=== PATIENT | female | born 1960 ===

== ENCOUNTER 2018-08-14 13:05 | Emergency (ER) | payer SELFPAY ==
[2018-08-14 13:13] VITALS: RESP 20
--- NOTE | 2018-08-14 14:23 | C.PDOC ---
History Of Present Illness 58 y/o female pt presents to the ER for c/o non-productive cough and cold sx for x2 years that worsened over the past 3 days. Patient was seen by Dr. Stanley Glasgow 2 days ago who prescribed her Zithromax, prednisone and cough medicine which did not provide relief. Pt denies fever, chills, nausea, vomiting, sore throat and chest pain. Time Seen by Provider: 08/14/18 13:18 Chief Complaint (Nursing): Cough, Cold, Congestion History Per: Patient History/Exam Limitations: no limitations Onset/Duration Of Symptoms: Days (x2 years) Current Symptoms Are (Timing): Still Present Associated Symptoms: Cough. denies: Fever, Sputum Severity: Mild Pain Scale Rating Of: 2 Past Medical History Reviewed: Historical Data, Nursing Documentation, Vital Signs Vital Signs: Last Vital Signs Temp 98.4 F 08/14/18 13:12 Pulse 81 08/14/18 13:12 Resp 20 08/14/18 13:12 BP 156/81 H 08/14/18 13:12 Pulse Ox 99 08/14/18 13:12 - Medical History PMH: No Chronic Diseases Surgical History: No Surg Hx Family History: States: No Known Family Hx - Social History Hx Alcohol Use: No Hx Substance Use: No Review Of Systems Except As Marked, All Systems Reviewed And Found Negative. Constitutional: Negative for: Fever, Chills ENT: Positive for: Nose Congestion. Negative for: Throat Pain Cardiovascular: Negative for: Chest Pain Respiratory: Positive for: Cough. Negative for: Shortness of Breath Gastrointestinal: Negative for: Nausea, Vomiting Physical Exam - Physical Exam Appears: Non-toxic, No Acute Distress Skin: Normal Color, Warm, Dry Head: Atraumatic, Normacephalic Eye(s): bilateral: Normal Inspection, PERRL, EOMI Ear(s): Bilateral: Normal Nose: Normal Oral Mucosa: Moist Throat: Normal Neck: Normal ROM, Supple Chest: Symmetrical Cardiovascular: Rhythm Regular Respiratory: Normal Breath Sounds, No Rales, No Rhonchi Gastrointestinal/Abdominal: Soft, No Tenderness Back: No CVA Tenderness Extremity: Normal ROM (x4) Neurological/Psych: Oriented x3, Normal Speech Gait: Steady ED Course And Treatment O2 Sat by Pulse Oximetry: 99 (RA) Pulse Ox Interpretation: Normal - Other Rad Chest XR Interpretation: Accession No. : [id number]. Patient Name / ID : BONIFACIO VALDEZ R / [id number]. Exam Date : 08/14/2018 13:43:48 ( Approved ). Study Comment : Sex / Age : F / 58Y. Creator : Anthony Freedman MD. Dictator : Anthony Freedman MD. Crotch Piece Baster : Shell Reprint Operator : Anthony Freedman MD. Approver2 : Report Date : 08/14/2018 14:56:32. My Comment : . Date of service: 08/14/2018. HISTORY: SOB. COMPARISON: No prior. TECHNIQUE: Chest PA and lateral. FINDINGS: LUNGS: No active pulmonary disease. PLEURA: No significant pleural effusion identified. No pneumothorax apparent. CARDIOVASCULAR: No aortic atherosclerotic calcification present. Normal cardiac size. No pulmonary vascular congestion. OSSEOUS STRUCTURES: No significant abnormalities. VISUALIZED UPPER ABDOMEN: Normal. OTHER FINDINGS: None. IMPRESSION: No acute cardiopulmonary disease appreciated. Progress Note: On re-evaluation lungs clear, in no distress Reassessment Condition: Unchanged Medical Decision Making Medical Decision Making: Impression: cough and cold sx Plans: -- CXR Disposition Counseled Patient/Family Regarding: Studies Performed, Diagnosis, Need For Followup - Disposition Referrals: Chelsea Glasgow MD [Staff Provider] - Disposition: HOME/ ROUTINE Disposition Time: 15:00 Condition: STABLE Additional Instructions: Follow up with Dr Glasgow for further evaluation Prescriptions: Albuterol HFA [Ventolin HFA 90 mcg/actuation (8 g)] 2 puff IH [id number] PRN #1 vial PRN Reason: Cough Instructions: Upper Respiratory Infection (ED) Forms: [employer] (Yi) - POA Present On Arrival: None - Clinical Impression Clinical Impression: Cough - PA / NUCLEAR EQUIPMENT RESEARCH ENGINEER / Resident Statement MD/DO has reviewed & agrees with the documentation as recorded. - Scribe Statement The provider has reviewed the documentation as recorded by the Scribe Aguilar All medical record entries made by the Liz were at my direction and personally dictated by me. I have reviewed the chart and agree that the record accurately reflects my personal performance of the history, physical exam, medical decision making, and the department course for this patient. I have also personally directed, reviewed, and agree with the discharge instructions and disposition.
[2018-08-14 14:57] VITALS: BP 145/89; PULSE 64; TEMP 98.1
--- NOTE | 2018-08-14 14:59 | RAD ---
Date of service: 08/14/2018 HISTORY: SOB COMPARISON: No prior. TECHNIQUE: Chest PA and lateral FINDINGS: LUNGS: No active pulmonary disease. PLEURA: No significant pleural effusion identified. No pneumothorax apparent. CARDIOVASCULAR: No aortic atherosclerotic calcification present. Normal cardiac size. No pulmonary vascular congestion. OSSEOUS STRUCTURES: No significant abnormalities. VISUALIZED UPPER ABDOMEN: Normal. OTHER FINDINGS: None. IMPRESSION: No acute cardiopulmonary disease appreciated.
[2018-08-14 15:24] VITALS: O2SAT 99
== END 2018-08-14 15:05 | disposition home or self-care (01) ==
LOC: C.ER 13:05
DX: R05 Cough (principal)